=== PATIENT | male | born 1960 | race Caucasian/White ===

== ENCOUNTER → 2019-01-24 | Outpatient (CLI) | payer OTHER | END | disposition home or self-care (01) | LOC: LAB 09:20 | PROVIDERS: ATTEND Nuclear Medicine Nuclear Cardiology | DX: R94.39 Abnormal result of other cardiovascular function study (principal); I50.9 Heart failure, unspecified; I42.9 Cardiomyopathy, unspecified | CPT/HCPCS: 80048 ==